=== PATIENT | female | born 1950 | race Caucasian/White ===

== ENCOUNTER 2020-04-24 18:57 | Emergency (ER) | payer MEDICARE ==
[~2020-04-24] VITALS: Ht 160 cm; Wt 74.8 kg
[2020-04-24 19:06] VITALS: BP 144/64
--- NOTE | 2020-04-24 19:18 | NUR ---
PATIENT AMBULATED TO BED 5
--- NOTE | 2020-04-24 19:31 | NUR ---
PT COMING IN WITH C/O CHILLS, FEVER, AND SOME NAUSEA X 2 DAYS. STATES TEMP AT HOME WAS 100.00, DID NOT TAKE ANY MEDS. DENIES SOB, NO VOMITING, DIARRHEA, NO LOSS OF TASTE OR SMELL, NO HEADACHE. CAME IN WITH FAMILY MEMBER EXHIBITING SAME SYMPTOMS. BED IN LOWEST POSITION AND SIDERAIL UP X 1. HX - DM NKA
--- NOTE | 2020-04-24 19:40 | NUR ---
NOVEL COVID SWAB COLLECTED AND TAKEN TO LAB
[2020-04-24 20:13] VITALS: BP 146/70
--- NOTE | 2020-04-24 20:14 | NUR ---
Patient discharged with v/s stable. Written and verbal after care instructions given and explained. Patient verbalized understanding. Ambulatory with steady gait. All questions addressed prior to discharge. Advised to follow up with PMD.
== END 2020-04-24 20:13 | disposition home or self-care (01) ==
LOC: MED 18:57
DX: R11.2 Nausea with vomiting, unspecified (principal); R19.7 Diarrhea, unspecified; R68.83 Chills (without fever); E11.9 Type 2 diabetes mellitus without complications; I10 Essential (primary) hypertension; E78.00 Pure hypercholesterolemia, unspecified; Z20.828 Contact with and (suspected) exposure to other viral communicable diseases
CPT/HCPCS: 99283; U0003